=== PATIENT | female | born 1955 | race Caucasian/White ===

== ENCOUNTER 2017-08-22 14:56 | Emergency (ER) | payer OTHER ==
[~2017-08-22] VITALS: Ht 160 cm; Wt 61.8 kg
[2017-08-22 15:04] VITALS: BP 142/93
[2017-08-22 16:26] LABS: MCH 29.6 PG (29.0-34.0); MCHC 34.8 G/DL (30.0-36.0); MCV 85.1 FL (83-99); PLATELET COUNT 248 K/uL (156-360); RBC DIS.WIDTH-CV 11.7 % (11.8-14.6); RBC DIS.WIDTH-SD 35.8 % (39-53); WHITE BLOOD COUNT 10.2 K/uL (4.1-10.2)
[2017-08-22 16:35] LABS: CHLORIDE 96 mEq/L (99-109); POTASSIUM 3.5 mEq/L (3.7-5.4); SODIUM 134 mEq/L (136-147)
[2017-08-22 16:37] LABS: GLUCOSE 355 mg/dL (70-99)
[2017-08-22 16:39] LABS: ANION GAP 13 MEQ/L (2-14)
[2017-08-22 16:41] LABS: GFR ESTIMATE (CALCULATED) > 59 mL/min/
[2017-08-22 16:42] LABS: UREA NITROGEN (BUN) 7 mg/dL (9-23)
[2017-08-22 16:50] LABS: ADD MIUA? NO; BILIRUBIN NEGATIVE; BLOOD NEGATIVE; COLOR YELLOW ((YELLOW)); GLUCOSE (STRIP) >=500; KETONES 20; LEUKOCYTES NEGATIVE; NITRITE NEGATIVE; PROTEIN (STRIP) NEGATIVE; SPECIFIC GRAVITY 1.038 (1.000-1.030); UCUL ADDED? NO; UROBILINOGEN 0.2 MG/DL (0.2-1.0)
[2017-08-22] MEDS ORDERED: KEFLEX500 MG PO (17:25)
[2017-08-22] MEDS ORDERED: BACTRIM,SEPT1 TABLET PO (17:25)
[2017-08-22] MEDS ORDERED: MOTRIN600 MG PO (17:29)
[2017-08-22 18:11] LABS: Estimated Average Glucose 332 mg/dL (70-123); HEMOGLOBIN A1c (GLYCOHEMOGLOB) 13.2 % HGB (Below 5.7)
== END 2017-08-22 17:54 | disposition home or self-care (01) ==
LOC: EME 14:56
PROVIDERS: Physician Assistant
PROC: 0H9BXZZ Drainage of Right Upper Arm Skin, External Approach (ICD-10-PCS; principal; 2017-08-22)
DX: L02.411 Cutaneous abscess of right axilla (principal); E11.65 Type 2 diabetes mellitus with hyperglycemia; Z91.14 Patient's other noncompliance with medication regimen; R10.9 Unspecified abdominal pain; Z87.891 Personal history of nicotine dependence
CPT/HCPCS: 80048; 81003; 82010; 83036; 85027; 87070; 87075; 87076; 87205; 99281; 99283

== ENCOUNTER 2017-08-25 18:50 | Emergency (ER) | payer OTHER ==
[~2017-08-25] VITALS: Ht 160 cm; Wt 62.6 kg
[~2017-08-25 18:50] MED LIST: BACTRIM,SEPT1 TABLET PO; KEFLEX500 MG PO; MOTRIN600 MG PO
[2017-08-25 20:01] VITALS: BP 123/78
== END 2017-08-25 20:03 | disposition home or self-care (01) ==
LOC: EME 18:50
DX: L02.411 Cutaneous abscess of right axilla (principal); Z48.01 Encounter for change or removal of surgical wound dressing; E11.9 Type 2 diabetes mellitus without complications; F17.200 Nicotine dependence, unspecified, uncomplicated
CPT/HCPCS: 99281; 99284

== ENCOUNTER 2017-12-16 16:15 | Emergency (ER) | payer OTHER ==
[~2017-12-16] VITALS: Ht 157.5 cm; Wt 60.8 kg
[2017-12-16] MEDS ORDERED: BACTRIM,SEPT1 TABLET PO (17:40)
[2017-12-16 17:53] VITALS: BP 116/86
== END 2017-12-16 17:55 | disposition home or self-care (01) ==
LOC: EME 16:15
DX: L02.31 Cutaneous abscess of buttock (principal); K61.0 Anal abscess; E11.9 Type 2 diabetes mellitus without complications; Z87.891 Personal history of nicotine dependence
CPT/HCPCS: 87070; 87075; 87205; 99281; 99284

== ENCOUNTER 2017-12-23 13:30 | Emergency (ER) | payer OTHER ==
[~2017-12-23] VITALS: Ht 157.5 cm; Wt 62.6 kg
[2017-12-23 17:16] VITALS: BP 128/68
== END 2017-12-23 17:17 | disposition home or self-care (01) ==
LOC: EME 13:30
DX: L02.31 Cutaneous abscess of buttock (principal)
CPT/HCPCS: 99281; 99284